=== PATIENT | female | born 1970 | race Caucasian/White ===

== ENCOUNTER 2018-11-08 16:53 | Emergency (ER) | payer OTHER ==
[~2018-11-08] VITALS: Wt 115.7 kg
[~2018-11-08 16:53] MED LIST: IBU800 MG PO; Motrin,Rufen800 MG PO; ZITHROMAX250 MG PO
[2018-11-08] MEDS ORDERED: DOXYCYCLINE100 MG PO (17:26)
[2018-11-08 17:50] VITALS: BP 163/100
== END 2018-11-08 18:00 | disposition home or self-care (01) ==
LOC: ED 16:53
DX: S61.531A Puncture wound without foreign body of right wrist, initial encounter (principal); S61.431A Puncture wound without foreign body of right hand, initial encounter; S60.021A Contusion of right index finger without damage to nail, initial encounter; Z88.0 Allergy status to penicillin; Z79.899 Other long term (current) drug therapy; W54.0XXA Bitten by dog, initial encounter; Y93.89 Activity, other specified; Y92.89 Other specified places as the place of occurrence of the external cause; Y99.8 Other external cause status

== ENCOUNTER → 2020-11-28 | Outpatient (CLI) | payer OTHER ==
[~2020-11-28] MED LIST changes: +DOXYCYCLINE100 MG PO
== END | disposition home or self-care (01) ==
LOC: COVID19 11:23
PROVIDERS: ATTEND Student in an Organized Health Care Education/Training Program
DX: U07.1 COVID-19 (principal)

== ENCOUNTER 2021-03-20 18:08 | Emergency (ER) | payer OTHER ==
[~2021-03-20] VITALS: Ht 167.6 cm; Wt 117.5 kg
[2021-03-20 18:57] VITALS: BP 170/81
== END 2021-03-20 22:19 | disposition home or self-care (01) ==
LOC: ED 18:08
DX: S80.861A Insect bite (nonvenomous), right lower leg, initial encounter (principal); Z79.899 Other long term (current) drug therapy; W57.XXXA Bitten or stung by nonvenomous insect and other nonvenomous arthropods, initial encounter; Y93.89 Activity, other specified; Y92.89 Other specified places as the place of occurrence of the external cause; Y99.8 Other external cause status

== ENCOUNTER → 2021-11-24 | Outpatient (CLI) | payer OTHER | END | disposition home or self-care (01) | LOC: COVID19 16:34 | PROVIDERS: ATTEND Internal Medicine | DX: Z20.822 Contact with and (suspected) exposure to COVID-19 (principal) ==

== ENCOUNTER → 2021-11-26 | Outpatient (CLI) | payer OTHER | LOC: COVID19 16:58 | PROVIDERS: ATTEND Internal Medicine | DX: Z11.52 Encounter for screening for COVID-19 (principal); Z20.822 Contact with and (suspected) exposure to COVID-19 ==

== ENCOUNTER 2024-06-26 18:20 | Emergency (ER) | payer OTHER ==
[~2024-06-26] VITALS: Ht 167.6 cm; Wt 114.3 kg
[2024-06-26 18:34] VITALS: BP 156/83
[2024-06-26] MEDS ORDERED: Tdap Vaccine 0.5 ML SYR (Adult Vaccine) IM ONE (19:55)
== END 2024-06-26 20:11 | disposition home or self-care (01) ==
LOC: ED 18:20
DX: S01.01XA Laceration without foreign body of scalp, initial encounter (principal); Z88.0 Allergy status to penicillin; W22.8XXA Striking against or struck by other objects, initial encounter; Y93.89 Activity, other specified; Y92.89 Other specified places as the place of occurrence of the external cause; Y99.8 Other external cause status